=== PATIENT | male | born 1975 | race African-American/Black ===

== ENCOUNTER 2016-05-28 17:14 | Emergency (ER) | payer OTHER, SELFPAY ==
[2016-05-28] MEDS ORDERED: Fentanyl 100 MCG/2 ML VIAL ONE (17:21)
[2016-05-28] MEDS ORDERED: methylPREDNISolone Sod Succ/PF 125 MG/2 ML VIAL ONE (17:22)
[2016-05-28] MEDS ORDERED: diphenhydrAMINE HCl 50 MG/ML 1 ML VIAL ONE (17:22)
[2016-05-28] MEDS ORDERED: Famotidine In NaCl 20 mg/50 ml Premix Bag ONE (17:22)
[2016-05-28] MEDS ORDERED: Ketorolac Tromethamine 30 MG/ML VIAL ONE (17:22)
== END 2016-05-28 18:41 | disposition home or self-care (01) ==
LOC: BURERS 17:14
DX: T63.461A Toxic effect of venom of wasps, accidental (unintentional), initial encounter (principal); T78.40XA Allergy, unspecified, initial encounter; F17.210 Nicotine dependence, cigarettes, uncomplicated; Z79.899 Other long term (current) drug therapy
CPT/HCPCS: 96365; 96375; J1200; J1885; J2930; J3010

== ENCOUNTER 2018-09-18 03:46 | Emergency (ER) | payer SELFPAY ==
[2018-09-18] MEDS ORDERED: hydrOXYzine 25 MG TAB ONE (04:14)
[2018-09-18] MEDS ORDERED: predniSONE 20 MG TAB ONE (04:14)
== END 2018-09-18 04:12 | disposition home or self-care (01) ==
LOC: BURERS 03:46
DX: S00.461A Insect bite (nonvenomous) of right ear, initial encounter (principal); S10.96XA Insect bite of unspecified part of neck, initial encounter; S40.862A Insect bite (nonvenomous) of left upper arm, initial encounter; S40.861A Insect bite (nonvenomous) of right upper arm, initial encounter; S80.862A Insect bite (nonvenomous), left lower leg, initial encounter; S80.861A Insect bite (nonvenomous), right lower leg, initial encounter; F17.210 Nicotine dependence, cigarettes, uncomplicated; W57.XXXA Bitten or stung by nonvenomous insect and other nonvenomous arthropods, initial encounter
CPT/HCPCS: 99282; J7512

== ENCOUNTER 2019-07-08 19:05 | Emergency (ER) | payer SELFPAY ==
[2019-07-08] MEDS ORDERED: Ibuprofen 200 MG TAB ONE (19:43)
--- NOTE | 2019-07-09 11:26 | RAD ---
RIGHT HIP: Date: 07/08/2019 A hip arthroplasty is in place. There is no sign of acute fracture. No loosening or sigs of infection found around the appliance. The adjacent pubic ring appears intact. IMPRESSION: No acute findings. POS: HOME
== END 2019-07-08 19:48 | disposition home or self-care (01) ==
LOC: BURERS 19:05
DX: S70.01XA Contusion of right hip, initial encounter (principal); R03.0 Elevated blood-pressure reading, without diagnosis of hypertension; F17.210 Nicotine dependence, cigarettes, uncomplicated; W10.9XXA Fall (on) (from) unspecified stairs and steps, initial encounter

== ENCOUNTER 2021-07-01 15:44 | Emergency (ER) | payer SELFPAY | END 2021-07-01 16:16 | disposition home or self-care (01) | LOC: BURERS 15:44 | DX: J30.9 Allergic rhinitis, unspecified (principal); F17.210 Nicotine dependence, cigarettes, uncomplicated | CPT/HCPCS: 99283 ==

== ENCOUNTER 2022-06-06 21:24 | Emergency (ER) | payer OTHER, SELFPAY | END 2022-06-06 22:41 | disposition home or self-care (01) | LOC: BURERS 21:24 | DX: S00.83XA Contusion of other part of head, initial encounter (principal); F10.129 Alcohol abuse with intoxication, unspecified; F17.210 Nicotine dependence, cigarettes, uncomplicated; Y04.0XXA Assault by unarmed brawl or fight, initial encounter | CPT/HCPCS: 70450; 72125 ==